=== PATIENT | male | born 1990 | race Caucasian/White ===

== ENCOUNTER 2024-12-27 16:29 | Outpatient (REF) | payer SELFPAY ==
[2024-12-27 16:32] VITALS: BP 140/67; PULSE 61; RESP 16; TEMP 36.6; O2SAT 95
--- OUTSIDE RECORDS SUMMARY | 2024-12-27 17:09 | XMS_ITS | Clinical Summary ---
Author Organization [facility] Address [address] [place] [id number] Care Team Providers Care City Planning Aide Name Role Phone None, Provider MD Primary Care Provider Unavaila ble Allergies No known active allergies Encounters Date Type Department Care Team Description 12/19/2024 3:46 PM CDT - 12/19/2024 6:05 PM CDT Emergency [facility] Emergency Room [address] [place] [id number] Joan Ingram MD Medical Screening Discharge Disposition: Left Against Medical Advice 12/19/2024 Travel from Last 3 Months Social History Tobacco Use Types Packs/Day Years Used Date Smoking Tobacco: Never Assessed Sex and Gender Information Value Date Recorded Sex Assigned at Male 12/19/2024 4:22 PM CDT Legal Sex Male 8:00 AM CDT Gender Identity Not on file Sexual Orientation Not on file Last Filed Vital Signs Vital Sign Reading Time Taken Comments Blood Pressure 130/63 12/19/2024 5:45 PM CDT Pulse 59 12/19/2024 5:45 PM CDT Temperature 37.1 C (98.7 F) 12/19/2024 3:53 PM CDT Respiratory Rate 15 12/19/2024 5:45 PM CDT Oxygen Saturation 97% 12/19/2024 5:45 PM CDT Inhaled Oxygen Concentration - - Weight 95.3 kg (210 lb) 12/19/2024 3:53 PM CDT Height 182.9 cm (6') 12/19/2024 3:53 PM CDT Body Mass Index 28.48 12/19/2024 3:53 PM CDT Plan of Treatment Health Maintenance Due Date Last Done Comments Annual Physical 1994 Hepatitis C 2009 DTaP, Tdap and Td Vaccines (6 - Td or Tdap) 01/19/2016 01/18/2006, 01/03/1996, 06/03/1995, Additional history exists COVID-19 Vaccine ( season) 2024 03/07/2021 Hepatitis B Vaccines Completed 06/03/1995, 03/26/1995, 01/17/1995 Meningococcal Vaccine Aged Out 01/18/2006 No vanessa jcarlos eligible based on patient's age to complete this topic HPV Vaccines Aged Out No longer eligi ble based on patient's age to complete this topic Meningococcal B Vaccine Aged Out No l onger eligible based on patient's age to complete this topic Pneumococcal Vaccine: Pediatrics (0 to 5 Years) and At-Risk Patients (6 to 49 Years) Aged Out No longer eligible based on patient's age to complete this topic RSV Immunizations Under 20 Months Aged Out No longer eligible based on patient's age to complete this topic Procedures Procedure Name Priority Date/Time Associated Diagnosis Comments LACTIC ACID W REFLEX (SEPSIS) STAT 12/19/2024 5:42 PM CDT TROPONIN, QUANT TIMED 12/19/2024 5:42 PM CDT DRUG SCREEN RAPID STAT 12/19/2024 5:0 6 PM CDT HC URINALYSIS AUTO W/O MICRO STAT 12/19/2024 5:06 PM CDT ECG 12-LEAD Routine 12/19/2024 4:40 PM CDT BLOOD GAS, VENOUS STAT 12/19/2024 4:[address] HEAD WO CON STAT 12/19/2024 4:28 PM CDT XR CHEST PORTABLE STAT 12/19/2024 4:2 8 PM CDT SALICYLATE STAT 12/19/2024 3:47 PM CDT ETHANOL STAT 12/19/2024 3:47 PM CDT TSH W/REFLEX STAT 12/19/2024 3:47 PM CDT MAGNESIUM STAT 12/19/2024 3:47 PM CDT LIPASE STAT 12/19/2024 3:47 PM CDT CK (CPK) STAT 12/19/2024 3:47 PM CDT TROPONIN, QUANT STAT 12/19/2024 3:47 PM CDT COMPREHENSIVE METABOLIC PANEL STAT 12/19/2024 3:47 PM CDT PARTIAL THROMBOPLASTIN TIME,PTT STAT 12/19/2024 3:47 PM CDT PROTHROMBIN TIME, VENOUS STAT 12/19/2024 3:47 PM CDT CBC W/DIFF AUTOMATED STAT 12/19/2024 3:47 PM CDT from Last 3 Months Results * LACTIC ACID W REFLEX (SEPSIS) (12/19/2024 5:42 PM CDT) Pathologist [facility] LACTIC ACID VENOUS 1.0 0.4 - 2.0 MMOL/L 12/19/2024 6:10 PM CDT [facility] 12/19/2024 5:42 PM CDT us Joan Ingram MD LABORATORY Final Result [facility] [address] [place] [address], [place] [phone] * TROPONIN, QUANT (12/19/2024 5:42 PM CDT) Only the most recent of2 resultswithin the time period is included. Pathologist [facility] TROPONIN I HIGH SENSITIVITY 4 0 - 79 ng/L 12/19/2024 6:06 PM CDT [facility] Comment: HIGH DOSES OF BIOTIN, TROPONIN-SPECIFIC AUTOANTIBODIES, AND ANTIBODY THERAPY CONTAINING HAMA MAY INTERFERE WITH THIS TEST RESULT. CORRELATION TO CLINICAL HISTORY AND PRESENTATION RECOMMENDED. 12/19/2024 5:42 PM CDT Joan Ingram MD LABORATORY Final Result [facility] [address] [place] [address], [place] [phone] * (ABNORMAL) DRUG SCREEN RAPID (12/19/2024 5:06 PM CDT) AMPHETAMINE SCREEN (U) NEGATIVE NEGATIVE 12/19/2024 5:27 PM CDT [facility] BARBITURATES SCREEN (U) NEGATIVE NEGATIVE 12/19/2024 5:27 PM CDT [facility] BENZODIAZEPINES SCREEN (U) NEGATIVE NEGATIVE 12/19/2024 5:27 PM CDT [facility] BUPRENORPHINE SCREEN (U) NEGATIVE NEGATIVE 12/19/2024 5:27 PM CDT [facility] COCAINE METABOLITES (U) NEGATIVE NEGATIVE 12/19/2024 5:27 PM CDT [facility] METHAMPHETAMINE (U) NEGATIVE NEGATIVE 12/19/2024 5:27 PM CDT [facility] METHADONE (U) NEGATIVE NEGATIVE 12/19/2024 5:27 PM CDT [facility] OPIATE SCREEN (U) NEGATIVE NEGATIVE 025 5:27 PM CDT [facility] OXYCODONE SCREEN (U) NEGATIVE NEGATIVE 12/19/2024 5:27 PM CDT [facility] PHENCYCLIDINE PCP (U) NEGATIVE NEGATIVE 12/19/2024 5:27 PM CDT [facility] CANNABINOIDS SCREEN (U) POSITIVE(A) NEGATIVE 12/19/2024 5:27 PM CDT [facility] TRICYCLIC ANTIDEPRESSANT SCREEN (U) NEGATIVE NEGATIVE 12/19/2024 5:27 PM CDT [facility] Comment: NOTE: RESULTS OF THIS DRUG SCREEN SHOULD BE USED FOR MEDICAL PURPOSES ONLY AND NOT FOR LEGAL OR EMPLOYMENT PURPOSES. POSITIVE RESULTS ARE NOT CONFIRMED. MEDICATIONS CONTAINING EPHEDRINE MAY CAUSE FALSE POSITIVE AMPHETAMINE Cut-off Concentration for a positive result AMPHETAMINE- 500 NG/ML BARBITURATE- 200 NG/ML BENZODIAZEPINE- 150 NG/ML BUPRENORPHINE- 10 NG/ML COCAINE- 150 NG/ML METHAMPHETAMINES- 500 NG/ML METHADONE- 200 NG/ML OPIATE- 100 NG/ML OXYCODONE- 100 NG/ML PCP- 25 NG/ML THC- 50 NG/ML TCA- 300 NG/ML U PH 6 12/19/2024 5:27 PM CDT [facility] URINE SPECIMEN / Unknown 12/19/2024 5:06 PM CDT us Joan Ingram MD URINE ORDERABLES Final Result [facility] [address] [place] [address], [place] [phone] * (ABNORMAL) URINALYSIS (12/19/2024 5:06 PM CDT) COLOR (U) YELLOW 12/19/2024 5:30 PM CDT [facility] TRANSPARENCY CLEAR 12/19/2024 5:30 PM CDT [facility] SPECIFIC GRAVITY (U) 1.025 1.002 - 1.030 12/19/2024 5:30 PM CDT [facility] U PH 6.0 4.5 - 8.0 12/19/2024 5:30 PM CDT [facility] LEUKOCYTES (U) NEGATIVE NEGATIVE 12/19/2024 5:30 PM CDT [facility] NITRITES NEGATIVE NEGATIVE 12/19/2024 5:30 PM CDT [facility] PROTEIN RANDOM (U) 2+(A) NEGATIVE 12/19/2024 5:30 PM CDT [facility] GLUCOSE (U) NEGATIVE NEGATIVE 12/19/2024 5:30 PM CDT [facility] KETONES MG/DL (U) NEGATIVE NEGATIVE 12/19/2024 5:30 PM CDT [facility] UROBILINOGEN NORMAL NORMAL EU/DL 12/19/2024 5:30 PM CDT [facility] BILIRUBIN (U) NEGATIVE NEGATIVE 12/19/2024 5:30 PM CDT [facility] BLOOD (U) NEGATIVE NEGATIVE 12/19/2024 5:30 PM CDT [facility] RBC/HPF 0-2 /HPF 12/19/2024 5:30 PM CDT [facility] EPI/HPF 5-10 /HPF 12/19/2024 5:30 PM CDT [facility] MUCUS 3+ 12/19/2024 5:30 PM CDT [facility] AMORPHOUS SEDIMENT 3+ 12/19/2024 5:30 PM CDT [facility] URINE SPECIMEN OBTAINED BY CLEAN CATCH PROCEDURE / Unknown 12/19/2024 5:06 PM CDT us Joan Ingram MD URINE ORDERABLES Final Result [facility] [address] [place] [address], [place] [phone] * ECG 12 lead (12/19/2024 4:40 PM CDT) 12/19/2024 4:40 PM CDT Narrative [facility] - 12/22/2024 11:43 AM CDT [facility] Test Date: 2024-12-19 Pat Name: CYNDIE LIU Department: 80 Room: EXAM 101 Gender: Male Regulatory Leader: : 1990 Requested By: JOAN INGRAM Order Number: [id number] Reading MD: Elise Velez Measurements Intervals [place] Rate: 59 P: 68 FL: 247 QRS: 74 QRSD: 129 T: 60 QT: 414 QTc: 411 Interpretive Statements SINUS BRADYCARDIA WITH FIRST DEGREE AV BLOCK MODERATE INTRAVENTRICULAR CONDUCTION DELAY [110+ ms QRS DURATION] No previous ECG available for comparison Procedure Note Elsie Velez MD - 12/22/2024 [facility] Test Date: 2024-12-19 Pat Name: CYNDIE LIU Department: 80 Room: EXAM 101 Gender: Male Regulatory Leader: : 1990 Requested By: JOAN INGRAM Order Number: [id number] Reading MD: Elsie Velez Measurements Intervals [place] Rate: 59 P: 68 FL: 247 QRS: 74 QRSD: 129 T: 60 QT: 414 QTc: 411 Interpretive Statements SINUS BRADYCARDIA WITH FIRST DEGREE AV BLOCK MODERATE INTRAVENTRICULAR CONDUCTION DELAY [110+ ms QRS DURATION] No previous ECG available for comparison us Joan Ingram MD ECG ORDERABLES Final Result [facility] RAD * (ABNORMAL) Blood gas, venous (12/19/2024 4:40 PM CDT) PH VENOUS 7.46(H) 7.32 - 7.43 12/19/2024 4:57 PM CDT [facility] PCO2 VENOUS 40.0 MMHG 12/19/2024 4:57 PM CDT [facility] Comment:NO REFERENCE RANGE H BEEN ESTABLISHED PO2 VENOUS 74.0 MM HG 12/19/2024 4:57 PM CDT [facility] Comment:NO REFERENCE RANGE H BEEN ESTABLISHED TOTAL CO2 VENOUS 29.6(H) 22.0 - 26.0 MMOL/L 12/19/2024 4:57 PM CDT [facility] BASE EXCESS VENOUS 4.2 MMOL/L 12/19/2024 4:57 PM CDT [facility] Comment:NO REFERENCE RANGE H BEEN ESTABLISHED O2 SAT VENOUS 96 % 12/19/2024 4:57 PM CDT [facility] Comment:NO REFERENCE RANGE H BEEN ESTABLISHED BICARB VENOUS 28.4 22.0 - 29.0 MMOL/L 12/19/2024 4:57 PM CDT [facility] O2 ADMIN VENOUS 21 4:54 PM CDT [facility] 12/19/2024 4:40 PM CDT Joan Ingram MD LABORATORY Final Result [facility] [address] [place] [address], * CT HEAD WO CON (12/19/2024 4:28 PM CDT) Anatomical Region Laterality Modality Head Computed Tomogra phy 12/19/2024 5:28 PM CDT Impressions 12/19/2024 5:32 PM CDT IMPRESSION: No acute intracranial abnormalities identified. Referred By: Interpreted By: Jose Gimenez DO, 12/19/2024 5:28 PM Narrative 12/19/2024 5:32 PM CDT [facility] [address] [place] [address] EXAMINATION: CT head without contrast HISTORY: Seizure. COMPARISON: None. TECHNIQUE: Axial CT images of the head without the use of intravenous contrast. A dose lowering technique was used for this procedure, which may include, but is not limited to, dose reduction technique, automated exposure control, the use of degenerative reconstruction, and ALARA/image gently techniques. FINDINGS: No evidence of acute intracranial hemorrhage, edema, or mass effect. There is no midline shift. No evidence of subdural or epidural hematoma. The ventricular system is normally sized. No hydrocephalus. There is calcification of the pineal gland. No visible acute intracranial abnormalities. If the patient's symptoms persist or worsen over time, further evaluation with MRI would be recommended. No acute appearing orbital abnormalities. The paranasal sinuses and mastoid air cells are clear. No acute osseous abnormalities are identified. Procedure Note Jose Gimenez DO - 12/19/2024 [facility] [address] [place] [address] EXAMINATION: CT head without contrast HISTORY: Seizure. COMPARISON: None. TECHNIQUE: Axial CT images of the head without the use of intravenous contrast. A dose lowering technique was used for this procedure, which may include,but is not limited to, dose reduction technique, automated exposurecontrol, the use of degenerative reconstruction, and ALARA/image gentlytechniques. FINDINGS: No evidence of acute intracranial hemorrhage, edema, or mass effect.There is no midline shift. No evidence of subdural or epidural hematoma.The ventricular system is normally sized. No hydrocephalus. There iscalcification of the pineal gland. No visible acute intracranialabnormalities. If the patient's symptoms persist or worsen over time,further evaluation with MRI would be recommended. No acute appearingorbital abnormalities. The paranasal sinuses and mastoid air cells areclear. No acute osseous abnormalities are identified. IMPRESSION: No acute intracranial abnormalities identified. Referred By: Interpreted By: Jose Gimenez DO, 12/19/2024 5:28 PM Joan Ingram MD CT Final Result * XR CHEST PORTABLE (12/19/2024 4:28 PM CDT) Anatomical Region Laterality Modality Chest Radiographic Rina ging 12/19/2024 5:27 PM CDT Impressions 12/19/2024 5:28 PM CDT IMPRESSION: No acute findings. Referred By: Interpreted By: Jose Gimenez DO, 12/19/2024 5:27 PM Narrative 12/19/2024 5:[place] [address] EXAMINATION: X-ray chest HISTORY: Seizure. Shortness of breath. COMPARISON: None. TECHNIQUE: Portable AP view chest. FINDINGS: The heart size and vascular markings appear within normal limits. There is no mediastinal shift. No evidence of pneumonia, pleural effusion, or pneumothorax. There are small benign calcified nodules and lymph nodes. No visible acute findings. Procedure Note Jose Gimenez DO - 12/19/2024 [place] [address] EXAMINATION: X-ray chest HISTORY: Seizure. Shortness of breath. COMPARISON: None. TECHNIQUE: Portable AP view chest. FINDINGS: The heart size and vascular markings appear within normal limits. Thereis no mediastinal shift. No evidence of pneumonia, pleural effusion, orpneumothorax. There are small benign calcified nodules and lymph nodes.No visible acute findings. IMPRESSION: No acute findings. Referred By: Interpreted By: Jose Gimenez DO, 12/19/2024 5:27 PM Joan Ingram MD GENERAL IMAGING Final Result * TSH W/REFLEX (12/19/2024 3:47 PM CDT) TSH 2.672 0.358 - 3.74 uIU/ML 12/19/2024 4:32 PM CDT [facility] Comment: HIGH DOSES OF BIOTIN MAY INTERFERE WITH THIS TEST RESULT. CORRELATION TO CLINICAL HISTORY AND PRESENTATION RECOMMENDED. FREE T4 NOT INDICATED 12/19/2024 3:47 PM CDT us Joan Ingram MD LABORATORY Final Result Performing Organization Address [facility] Co de Phone Number [facility] [address] [place] [address], [place] [phone] * PARTIAL THROMBOPLASTIN TIME,PTT (12/19/2024 3:47 PM CDT) PTT 31.9 25.1 - 36.5 SEC 12/19/2024 4:22 PM CDT [facility] 12/19/2024 3:47 PM CDT us Joan Ingram MD LABORATORY Final Result Performing Organization Address [facility] Co de Phone Number [facility] [address] [place] [address], [place] [phone] * PROTIME/INR, VENOUS (12/19/2024 3:47 PM CDT) PROTIME 12.1 9.4 - 12.5 SEC 12/19/2024 4:22 PM CDT [facility] INR 1.1 0.9 - 1.1 12/19/2024 4:22 PM CDT [facility] Comment: Recommended INR Therapeutic Goals: 2.0-3.0 Routine Therapy 2.5-3.5 Mechanical Prosthetic Valves (High Risk) 12/19/2024 3:47 PM CDT us Joan Ingram MD LABORATORY Final Result Performing Organization Address [facility] Co de Phone Number [facility] [address] [place] [address], [place] [phone] * (ABNORMAL) COMPREHENSIVE METABOLIC PANEL (12/19/2024 3:47 PM CDT) [facility] GLUCOSE 86 70 - 99 MG/DL 12/19/2024 4:32 PM CDT [facility] BUN 12 7 - 18 MG/DL 12/19/2024 4:32 PM CDT [facility] CREATININE S/P/B 1.16 0.7 - 1.3 MG/DL 12/19/2024 4:32 PM CDT [facility] SODIUM S/P/B 144 136 - 145 MMOL/L 12/19/2024 4:32 PM CDT [facility] POTASSIUM S/P/B 3.8 3.5 - 5.1 MMOL/L 12/19/2024 4:32 PM CDT [facility] CHLORIDE S/P/B 104 100 - 108 MMOL/L 12/19/2024 4:32 PM CDT [facility] CO2 30.6 21 - 32 MMOL/L 12/19/2024 4:32 PM CDT [facility] CALCIUM S/P/B 8.9 8.5 - 10.1 MG/DL 12/19/2024 4:32 PM CDT [facility] BILIRUBIN TOTAL S/P/B 0.5 0.2 - 1.2 MG/DL 12/19/2024 4:32 PM T [facility] Comment: THIS ASSAY IS NOT RECOMMENDED FOR PATIENTS UNDERGOING TREATMENT WITH ELTROMBOPAG DUE TO THE POTENTIAL FOR FALSELY ELEVATED RESULTS. TOTAL PROTEIN S/P/B 7.1 6.4 - 8.2 G/DL 12/19/2024 4:32 PM CDT [facility] ALBUMIN S/P/B 4.0 3.4 - 5.0 G/DL 12/19/2024 4:32 PM CDT [facility] AST 24 15 - 37 U/L 12/19/2024 4:32 PM CDT [facility] ALT 20 16 - 60 U/L 12/19/2024 4:32 PM CDT [facility] ALKALINE PHOSPHATASE S/P/B 83 50 - 136 U/L 12/19/2024 4:32 PM CDT [facility] ANION GAP 9.4 5 - 15 MMOL/L 12/19/2024 4:32 PM CDT [facility] BUN CREATININE RATIO 10.3 6 - 26 12/19/2024 4:32 PM CDT [facility] A/G RATIO 1.3 1.0 - 2.0 RATIO 12/19/2024 4:32 PM CDT [facility] GFR ESTIMATE 85(L) >90 ML/MIN/1.7 3 M2 12/19/2024 4:32 PM CDT [facility] Comment: NOTE: eGFR is not calculated for patients <18 years of age. This is an estimated GFR calculation using the new CKD EPI creatinine equation without race and so does not require a correction factor for race. This estimated GFR should not be used for calculating drug doses. 12/19/2024 3:47 PM CDT Joan Ingram MD LABORATORY Final Result [facility] [address] [place] [address], [place] [phone] * (ABNORMAL) CBC W/DIFF AUTOMATED (12/19/2024 3:47 PM CDT) WBC 9.47 4.50 - 11.00 x10'3/uL 12/19/2024 4:10 PM CDT [facility] RBC 4.85 4.70 - 6.10 x10'6/uL 12/19/2024 4:10 PM CDT [facility] HGB 15.5 14.0 - 18.0 G/DL 12/19/2024 4:10 PM CDT [facility] HCT 43.4 43.0 - 54.0 % 12/19/2024 4:10 PM CDT [facility] MCV 89.5 80.0 - 94.0 FL 12/19/2024 4:10 PM CDT [facility] MCH 32.0(H) 27.0 - 31.0 PG 12/19/2024 4:10 PM CDT [facility] MCHC 35.7 32.0 - 36.0 G/DL 12/19/2024 4:10 PM CDT [facility] RDW 11.5 11.5 - 14.5 % 12/19/2024 4:10 PM CDT [facility] PLT 221 130 - 400 x10'3/uL 12/19/2024 4:10 PM CDT [facility] MPV 9.2(L) 9.3 - 12.2 FL 12/19/2024 4:10 PM T [facility] CBC COMMENT AUTOMATED RBC MORPHOLOGY AND PLATELET EVALUATION NORMAL 12/19/2024 4:10 PM CDT [facility] NEUTROPHILS % 64.7 % 12/19/2024 4:10 PM CDT [facility] LYMPHOCYTES % 24.3 % 12/19/2024 4:10 PM CDT [facility] MONOCYTES % 8.6 % 12/19/2024 4:10 PM CDT [facility] EOSINOPHILS 1.6 % 12/19/2024 4:10 PM CDT [facility] BASOPHILS 0.5 % 12/19/2024 4:10 PM CDT [facility] IMMATURE GRANS % 0.3 % 12/20/19 4:10 PM CDT [facility] NRBC % 0.0 % 12/19/2024 4:10 PM CDT [facility] ABS. NEUTROPHILS TOTAL 6.13 1.80 - 7.70 x10'3/uL 12/19/2024 4:10 PM CDT [facility] ABS. LYMPHOCYTES 2.30 1.00 - 4.80 x10'3/uL 12/19/2024 4:10 PM CDT [facility] ABS. MONOCYTES 0.81 0.30 - 0.82 x10'3/uL 12/19/2024 4:10 PM CDT [facility] ABS. EOSINOPHILS 0.15 0.04 - 0.54 x10'3/uL 12/19/2024 4:10 PM CDT [facility] ABS. BASOPHILS 0.05 0.01 - 0.08 x10'3/uL 12/19/2024 4:10 PM CDT [facility] ABS. IMMATURE GRANULOCYTES 0.03 0.00 - 0.49 x10'3/uL 12/19/2024 4:10 PM CDT [facility] ABS. NUCLEATED RBC'S 0.00 0.00 - 0.01 x10'3/uL 12/19/2024 4:10 PM CDT [facility] 12/19/2024 3:47 PM CDT us Joan Ingram MD LABORATORY Final Result [facility] [address] [place] [address], * MAGNESIUM (12/19/2024 3:47 PM CDT) MAGNESIUM 2.0 1.8 - 2.4 MG/DL 12/19/2024 4:32 PM CDT [facility] 12/19/2024 3:47 PM CDT us Joan Ingram MD LABORATORY Final Result Performing Organization Address [facility]/ZIP Co de Phone Number [facility] [address] [place] [address], [place] [phone] * (ABNORMAL) LIPASE (12/19/2024 3:47 PM CDT) LIPASE 180(H) 16 - 77 UNITS/L 12/19/2024 4:32 PM CDT [facility] 12/19/2024 3:47 PM CDT us Joan Ingram MD LABORATORY Final Result Performing Organization Address [facility] Co de Phone Number [facility] [address] [place] [address], [place] [phone] * SALICYLATE (12/19/2024 3:47 PM CDT) SALICYLATES 0.5 MG/DL 12/19/2024 4:18 PM CDT [facility] Comment: THERAPEUTIC: 2.8-20.0 Toxic Level: >=30 12/19/2024 3:47 PM CDT us Joan Ingram MD LABORATORY Final Result Performing Organization Address [facility] Co de Phone Number [facility] [address] [place] [address], [place] [phone] * ETHANOL (12/19/2024 3:47 PM CDT) ALCOHOL S/P/B <0.003 <0.003 G/DL 12/19/2024 4:32 PM CDT [facility] 12/19/2024 3:47 PM CDT us Joan Ingram MD LABORATORY Final Result Performing Organization Address City/[facility]/ZIP Co de Phone Number [facility] [address] [place] [address], [place] [phone] * (ABNORMAL) CK (CPK) (12/19/2024 3:47 PM CDT) CPK 461(H) 39 - 308 U/L 12/19/2024 4:32 PM CDT [facility] 12/19/2024 3:47 PM CDT us Joan Ingram MD LABORATORY Final Result Performing Organization Address [facility] Co de Phone Number [facility] [address] [place] [address], [place] [phone] from Last 3 Months Insurance [facility] Care Teams City Planning Aide Relationship Specialty Start Date End Date None, Provider, MD PCP - General UNKNOWN PHYSICIAN SPECIALTY 12/19/24
--- OUTSIDE RECORDS SUMMARY | 2024-12-28 06:19 | XMS_ITS | Clinical Summary ---
Author Organization [facility] Address [address] [place] [id number] Care Team Providers Care Inspector Plumbing Name Role Phone None, Provider MD Primary Care Provider Unavaila ble Allergies No known active allergies Encounters Date Type Department Care Team Description 12/19/2024 3:46 PM CDT - 12/19/2024 6:05 PM CDT Emergency [facility] Emergency Room [address] [place] [id number] Joan Ingram MD Medical Screening Discharge [...] REFLEX (SEPSIS) (12/19/2024 5:42 PM CDT) Pathologist [facility] LACTIC ACID VENOUS 1.0 0.4 - 2.0 MMOL/L 12/19/2024 6:10 PM CDT [facility] 12/19/2024 5:42 PM CDT us Joan Ingram MD LABORATORY Final Result [facility] [address] [place] [address], [place] [phone] * TROPONIN, QUANT (12/19/2024 5:42 PM CDT) Only the most recent of2 resultswithin the time period is included. Pathologist [facility] TROPONIN I HIGH SENSITIVITY 4 0 - 79 ng/L 12/19/2024 6:06 PM CDT [facility] Comment: HIGH DOSES OF BIOTIN, TROPONIN-SPECIFIC AUTOANTIBODIES, AND ANTIBODY THERAPY CONTAINING HAMA MAY INTERFERE WITH THIS TEST RESULT. CORRELATION TO CLINICAL HISTORY AND PRESENTATION RECOMMENDED. 12/19/2024 5:42 PM CDT Joan Ingram MD LABORATORY Final Result [facility] [address] [place] [address], [place] [phone] * (ABNORMAL) DRUG SCREEN RAPID (12/19/2024 5:06 PM CDT) AMPHETAMINE SCREEN (U) NEGATIVE NEGATIVE 12/19/2024 5:27 PM CDT [facility] BARBITURATES SCREEN (U) NEGATIVE NEGATIVE 12/19/2024 5:27 PM CDT [facility] BENZODIAZEPINES SCREEN (U) NEGATIVE NEGATIVE 12/19/2024 5:27 PM CDT [facility] BUPRENORPHINE SCREEN (U) NEGATIVE NEGATIVE 12/19/2024 5:27 PM CDT [facility] COCAINE METABOLITES (U) NEGATIVE NEGATIVE 12/19/2024 5:27 PM CDT [facility] METHAMPHETAMINE (U) NEGATIVE NEGATIVE 12/19/2024 5:27 PM CDT [facility] METHADONE (U) NEGATIVE NEGATIVE 12/19/2024 5:27 PM CDT [facility] OPIATE SCREEN (U) NEGATIVE NEGATIVE 025 5:27 PM CDT [facility] OXYCODONE SCREEN (U) NEGATIVE NEGATIVE 12/19/2024 5:27 PM CDT [facility] PHENCYCLIDINE PCP (U) NEGATIVE NEGATIVE 12/19/2024 5:27 PM CDT [facility] CANNABINOIDS SCREEN (U) POSITIVE(A) NEGATIVE 12/19/2024 5:27 PM CDT [facility] TRICYCLIC ANTIDEPRESSANT SCREEN (U) NEGATIVE NEGATIVE 12/19/2024 5:27 PM CDT [facility] Comment: NOTE: RESULTS OF THIS [...] U PH 6 12/19/2024 5:27 PM CDT [facility] URINE SPECIMEN / Unknown 12/19/2024 5:06 PM CDT us Joan Ingram MD URINE ORDERABLES Final Result [facility] [address] [place] [address], [place] [phone] * (ABNORMAL) URINALYSIS (12/19/2024 5:06 PM CDT) COLOR (U) YELLOW 12/19/2024 5:30 PM CDT [facility] TRANSPARENCY CLEAR 12/19/2024 5:30 PM CDT [facility] SPECIFIC GRAVITY (U) 1.025 1.002 - 1.030 12/19/2024 5:30 PM CDT [facility] U PH 6.0 4.5 - 8.0 12/19/2024 5:30 PM CDT [facility] LEUKOCYTES (U) NEGATIVE NEGATIVE 12/19/2024 5:30 PM CDT [facility] NITRITES NEGATIVE NEGATIVE 12/19/2024 5:30 PM CDT [facility] PROTEIN RANDOM (U) 2+(A) NEGATIVE 12/19/2024 5:30 PM CDT [facility] GLUCOSE (U) NEGATIVE NEGATIVE 12/19/2024 5:30 PM CDT [facility] KETONES MG/DL (U) NEGATIVE NEGATIVE 12/19/2024 5:30 PM CDT [facility] UROBILINOGEN NORMAL NORMAL EU/DL 12/19/2024 5:30 PM CDT [facility] BILIRUBIN (U) NEGATIVE NEGATIVE 12/19/2024 5:30 PM CDT [facility] BLOOD (U) NEGATIVE NEGATIVE 12/19/2024 5:30 PM CDT [facility] RBC/HPF 0-2 /HPF 12/19/2024 5:30 PM CDT [facility] EPI/HPF 5-10 /HPF 12/19/2024 5:30 PM CDT [facility] MUCUS 3+ 12/19/2024 5:30 PM CDT [facility] AMORPHOUS SEDIMENT 3+ 12/19/2024 5:30 PM CDT [facility] URINE SPECIMEN OBTAINED BY CLEAN CATCH PROCEDURE / Unknown 12/19/2024 5:06 PM CDT us Joan Ingram MD URINE ORDERABLES Final Result [facility] [address] [place] [address], [place] [phone] * ECG 12 lead (12/19/2024 4:40 PM CDT) 12/19/2024 4:40 PM CDT Narrative [facility] ([facility] RAD - 12/22/2024 11:43 AM CDT [facility] Test Date: 2024-12-19 Pat Name: CYNDIE LIU Department: 80 Room: EXAM 101 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1990 Requested By: JOAN INGRAM Order Number: [id number] Reading MD: Elsie Velez Measurements Intervals [place] Rate: 59 P: 68 TN: 247 QRS: 74 QRSD: 129 T: 60 QT: 414 QTc: 411 Interpretive Statements SINUS BRADYCARDIA WITH FIRST DEGREE AV BLOCK MODERATE INTRAVENTRICULAR CONDUCTION DELAY [110+ ms QRS DURATION] No previous ECG available for comparison Procedure Note Elsie Velez MD - 12/22/2024 [facility] Test Date: 2024-12-19 Pat Name: CYNDIE LIU Department: 80 Room: EXAM 101 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1990 Requested By: JOAN INGRAM Order Number: [id number] Reading MD: Elsie Velez Measurements Intervals [place] Rate: 59 P: 68 TN: 247 QRS: 74 QRSD: 129 T: 60 QT: 414 QTc: 411 Interpretive Statements SINUS BRADYCARDIA WITH FIRST DEGREE AV BLOCK MODERATE INTRAVENTRICULAR CONDUCTION DELAY [110+ ms QRS DURATION] No previous ECG available for comparison us Joan Ingram MD ECG ORDERABLES Final Result [facility] RAD * (ABNORMAL) Blood gas, venous (12/19/2024 4:40 PM CDT) PH VENOUS 7.46(H) 7.32 - 7.43 12/19/2024 4:57 PM CDT [facility] PCO2 VENOUS 40.0 MMHG 12/19/2024 4:57 PM CDT [facility] Comment:NO REFERENCE RANGE H BEEN ESTABLISHED PO2 VENOUS 74.0 MM HG 12/19/2024 4:57 PM CDT [facility] Comment:NO REFERENCE RANGE H BEEN ESTABLISHED TOTAL CO2 VENOUS 29.6(H) 22.0 - 26.0 MMOL/L 12/19/2024 4:57 PM CDT [facility] BASE EXCESS VENOUS 4.2 MMOL/L 12/19/2024 4:57 PM CDT [facility] Comment:NO REFERENCE RANGE H BEEN ESTABLISHED O2 SAT VENOUS 96 % 12/19/2024 4:57 PM CDT [facility] Comment:NO REFERENCE RANGE H BEEN ESTABLISHED BICARB VENOUS 28.4 22.0 - 29.0 MMOL/L 12/19/2024 4:57 PM CDT [facility] O2 ADMIN VENOUS 21 4:54 PM CDT [facility] 12/19/2024 4:40 PM CDT Joan Ingram MD LABORATORY Final Result [facility] [address] [place] [address], * CT HEAD WO CON (12/19/2024 4:28 PM CDT) Anatomical Region Laterality Modality Head Computed Tomogra phy 12/19/2024 5:28 PM CDT Impressions 12/19/2024 5:32 PM CDT IMPRESSION: No acute intracranial abnormalities identified. Referred By: Interpreted By: Jose Gimenez DO, 12/19/2024 5:28 PM Narrative 12/19/2024 5:32 PM CDT [facility] [address] [place] [address] EXAMINATION: CT head without contrast HISTORY: Seizure. [...] Procedure Note Jose Gimenez DO - 12/19/2024 [facility] [address] [place] [address] EXAMINATION: CT head without contrast HISTORY: Seizure. [...] 5:27 PM Narrative 12/19/2024 5:[place] [address] EXAMINATION: X-ray chest HISTORY: Seizure. Shortness of breath. COMPARISON: None. TECHNIQUE: Portable AP view chest. FINDINGS: The heart size and vascular markings appear within normal limits. There is no mediastinal shift. No evidence of pneumonia, pleural effusion, or pneumothorax. There are small benign calcified nodules and lymph nodes. No visible acute findings. Procedure Note Jose Gimenez DO - 12/19/2024 [place] [address] EXAMINATION: X-ray chest HISTORY: Seizure. Shortness of [...] MD LABORATORY Final Result Performing Organization Address [facility] Co de Phone Number [facility] [address] [place] [address], [place] [phone] * PARTIAL THROMBOPLASTIN TIME,PTT (12/19/2024 3:47 PM CDT) PTT 31.9 25.1 - 36.5 SEC 12/19/2024 4:22 PM CDT [facility] 12/19/2024 3:47 PM CDT us Joan Ingram MD LABORATORY Final Result Performing Organization Address [facility] Co de Phone Number [facility] [address] [place] [address], [place] [phone] * PROTIME/INR, VENOUS (12/19/2024 3:47 PM CDT) PROTIME 12.1 9.4 - 12.5 SEC 12/19/2024 4:22 PM CDT [facility] INR 1.1 0.9 - 1.1 12/19/2024 4:22 PM CDT [facility] Comment: Recommended INR Therapeutic Goals: 2.0-3.0 Routine Therapy 2.5-3.5 Mechanical Prosthetic Valves (High Risk) 12/19/2024 3:47 PM CDT us Joan Ingram MD LABORATORY Final Result Performing Organization Address [facility] Co de Phone Number [facility] [address] [place] [address], [place] [phone] * (ABNORMAL) COMPREHENSIVE METABOLIC PANEL (12/19/2024 3:47 PM CDT) [facility] GLUCOSE 86 70 - 99 MG/DL 12/19/2024 4:32 PM CDT [facility] BUN 12 7 - 18 MG/DL 12/19/2024 4:32 PM CDT [facility] CREATININE S/P/B 1.16 0.7 - 1.3 MG/DL 12/19/2024 4:32 PM CDT [facility] SODIUM S/P/B 144 136 - 145 MMOL/L 12/19/2024 4:32 PM CDT [facility] POTASSIUM S/P/B 3.8 3.5 - 5.1 MMOL/L 12/19/2024 4:32 PM CDT [facility] CHLORIDE S/P/B 104 100 - 108 MMOL/L 12/19/2024 4:32 PM CDT [facility] CO2 30.6 21 - 32 MMOL/L 12/19/2024 4:32 PM CDT [facility] CALCIUM S/P/B 8.9 8.5 - 10.1 MG/DL 12/19/2024 4:32 PM CDT [facility] BILIRUBIN TOTAL S/P/B 0.5 0.2 - 1.2 MG/DL 12/19/2024 4:32 PM T [facility] Comment: THIS ASSAY IS NOT RECOMMENDED FOR PATIENTS UNDERGOING TREATMENT WITH ELTROMBOPAG DUE TO THE POTENTIAL FOR FALSELY ELEVATED RESULTS. TOTAL PROTEIN S/P/B 7.1 6.4 - 8.2 G/DL 12/19/2024 4:32 PM CDT [facility] ALBUMIN S/P/B 4.0 3.4 - 5.0 G/DL 12/19/2024 4:32 PM CDT [facility] AST 24 15 - 37 U/L 12/19/2024 4:32 PM CDT [facility] ALT 20 16 - 60 U/L 12/19/2024 4:32 PM CDT [facility] ALKALINE PHOSPHATASE S/P/B 83 50 - 136 U/L 12/19/2024 4:32 PM CDT [facility] ANION GAP 9.4 5 - 15 MMOL/L 12/19/2024 4:32 PM CDT [facility] BUN CREATININE RATIO 10.3 6 - 26 12/19/2024 4:32 PM CDT [facility] A/G RATIO 1.3 1.0 - 2.0 RATIO 12/19/2024 4:32 PM CDT [facility] GFR ESTIMATE 85(L) >90 ML/MIN/1.7 3 M2 12/19/2024 4:32 PM CDT [facility] Comment: NOTE: eGFR is not calculated for patients <18 years of age. This is an estimated GFR calculation using the new CKD EPI creatinine equation without race and so does not require a correction factor for race. This estimated GFR should not be used for calculating drug doses. 12/19/2024 3:47 PM CDT Joan Ingram MD LABORATORY Final Result [facility] [address] [place] [address], [place] [phone] * (ABNORMAL) CBC W/DIFF AUTOMATED (12/19/2024 3:47 PM CDT) WBC 9.47 4.50 - 11.00 x10'3/uL 12/19/2024 4:10 PM CDT [facility] RBC 4.85 4.70 - 6.10 x10'6/uL 12/19/2024 4:10 PM CDT [facility] HGB 15.5 14.0 - 18.0 G/DL 12/19/2024 4:10 PM CDT [facility] HCT 43.4 43.0 - 54.0 % 12/19/2024 4:10 PM CDT [facility] MCV 89.5 80.0 - 94.0 FL 12/19/2024 4:10 PM CDT [facility] MCH 32.0(H) 27.0 - 31.0 PG 12/19/2024 4:10 PM CDT [facility] MCHC 35.7 32.0 - 36.0 G/DL 12/19/2024 4:10 PM CDT [facility] RDW 11.5 11.5 - 14.5 % 12/19/2024 4:10 PM CDT [facility] PLT 221 130 - 400 x10'3/uL 12/19/2024 4:10 PM CDT [facility] MPV 9.2(L) 9.3 - 12.2 FL 12/19/2024 4:10 PM T [facility] CBC COMMENT AUTOMATED RBC MORPHOLOGY AND PLATELET EVALUATION NORMAL 12/19/2024 4:10 PM CDT [facility] NEUTROPHILS % 64.7 % 12/19/2024 4:10 PM CDT [facility] LYMPHOCYTES % 24.3 % 12/19/2024 4:10 PM CDT [facility] MONOCYTES % 8.6 % 12/19/2024 4:10 PM CDT [facility] EOSINOPHILS 1.6 % 12/19/2024 4:10 PM CDT [facility] BASOPHILS 0.5 % 12/19/2024 4:10 PM CDT [facility] IMMATURE GRANS % 0.3 % 12/20/19 4:10 PM CDT [facility] NRBC % 0.0 % 12/19/2024 4:10 PM CDT [facility] ABS. NEUTROPHILS TOTAL 6.13 1.80 - 7.70 x10'3/uL 12/19/2024 4:10 PM CDT [facility] ABS. LYMPHOCYTES 2.30 1.00 - 4.80 x10'3/uL 12/19/2024 4:10 PM CDT [facility] ABS. MONOCYTES 0.81 0.30 - 0.82 x10'3/uL 12/19/2024 4:10 PM CDT [facility] ABS. EOSINOPHILS 0.15 0.04 - 0.54 x10'3/uL 12/19/2024 4:10 PM CDT [facility] ABS. BASOPHILS 0.05 0.01 - 0.08 x10'3/uL 12/19/2024 4:10 PM CDT [facility] ABS. IMMATURE GRANULOCYTES 0.03 0.00 - 0.49 x10'3/uL 12/19/2024 4:10 PM CDT [facility] ABS. NUCLEATED RBC'S 0.00 0.00 - 0.01 x10'3/uL 12/19/2024 4:10 PM CDT [facility] 12/19/2024 3:47 PM CDT us Joan Ingram MD LABORATORY Final Result [facility] [address] [place] [address], * MAGNESIUM (12/19/2024 3:47 PM CDT) MAGNESIUM 2.0 1.8 - 2.4 MG/DL 12/19/2024 4:32 PM CDT [facility] 12/19/2024 3:47 PM CDT us Joan Ingram MD LABORATORY Final Result Performing Organization Address [facility]/ZIP Co de Phone Number [facility] [address] [place] [address], [place] [phone] * (ABNORMAL) LIPASE (12/19/2024 3:47 PM CDT) LIPASE 180(H) 16 - 77 UNITS/L 12/19/2024 4:32 PM CDT [facility] 12/19/2024 3:47 PM CDT us Joan Ingram MD LABORATORY Final Result Performing Organization Address [facility] Co de Phone Number [facility] [address] [place] [address], [place] [phone] * SALICYLATE (12/19/2024 3:47 PM CDT) SALICYLATES 0.5 MG/DL 12/19/2024 4:18 PM CDT [facility] Comment: THERAPEUTIC: 2.8-20.0 Toxic Level: >=30 12/19/2024 3:47 PM CDT us Joan Ingram MD LABORATORY Final Result Performing Organization Address [facility] Co de Phone Number [facility] [address] [place] [address], [place] [phone] * ETHANOL (12/19/2024 3:47 PM CDT) ALCOHOL S/P/B <0.003 <0.003 G/DL 12/19/2024 4:32 PM CDT [facility] 12/19/2024 3:47 PM CDT us Joan Ingram MD LABORATORY Final Result Performing Organization Address City/[facility]/ZIP Co de Phone Number [facility] [address] [place] [address], [place] [phone] * (ABNORMAL) CK (CPK) (12/19/2024 3:47 PM CDT) CPK 461(H) 39 - 308 U/L 12/19/2024 4:32 PM CDT [facility] 12/19/2024 3:47 PM CDT us Joan Ingram MD LABORATORY Final Result Performing Organization Address [facility] Co de Phone Number [facility] [address] [place] [address], [place] [phone] from Last [address] [facility] Care Teams Inspector Plumbing Relationship Specialty Start Date End Date None, Provider, MD PCP - General UNKNOWN PHYSICIAN SPECIALTY 12/19/24
== END 2024-12-27 17:19 ==
LOC: ANHED 16:29
DX: H91.90 Unspecified hearing loss, unspecified ear (principal)
CPT/HCPCS: 99199